=== PATIENT | male | born 1985 | race Caucasian/White ===

== ENCOUNTER 2018-04-20 20:53 | Emergency (ER) | payer OTHER ==
[~2018-04-20] VITALS: Ht 185.4 cm; Wt 72.6 kg
[~2018-04-20 20:53] MED LIST: ACETAMINOPHEN-1 EAC1 PO; BACTRIM DS TAB1 EACH PO; NOHOMEMEDICATIONS; ULTRAM 50MG TAB50 MG PO
[2018-04-20] MEDS ORDERED: PERCOCET PO (20:56)
[2018-04-20 21:32] LABS: ABSOLUTE BASOPHILS 0.1 thou/uL (0.0-0.2); ABSOLUTE EOSINOPHILS 0.2 thou/uL (0.0-0.7); ABSOLUTE LYMPHOCYTES 2.6 thou/uL (0.8-5.3); ABSOLUTE MONOCYTES 0.6 thou/uL (0.0-1.2); ABSOLUTE NEUTROPHILS 7.9 thou/uL (1.6-8.1); BASOPHILS 0.5 %; HEMATOCRIT 38.1 % (42.0-52.0); HEMOGLOBIN 12.7 gm/dL (14.0-18.0); LYMPHOCYTES 22.6 %; MCH 30.7 pg (26.0-34.0); MCHC 33.4 g/dL (28.0-37.0); MCV 91.9 fL (80.0-100.0); MONOCYTES 5.2 %; NUCLEATED RBCS 0 /100WBC; PLATELET COUNT* 351 thou/uL (150-400); POLYS 69.7 %; RBC 4.15 mil/uL (4.50-6.00); WBC 11.3 thou/uL (4.0-11.0)
[2018-04-20 21:44] LABS: URINE BILIRUBIN NEGATIVE (Negative); URINE BLOOD NEGATIVE (Negative); URINE CLARITY CLEAR; URINE COLOR YELLOW; URINE GLUCOSE-RANDOM NEGATIVE (Negative); URINE KETONES NEGATIVE (Negative); URINE LEUKOCYTES-REFLEX NEGATIVE (Negative); URINE NITRITE-REFLEX NEGATIVE (Negative); URINE PROTEIN NEGATIVE (Negative); URINE UROBILINOGEN 0.2 E.U./dl (0.2-1.0)
[2018-04-20 21:55] VITALS: BP 0008/00
[2018-04-20 21:59] LABS: AMP/METHAMP POSITIVE (Negative); BARBITURATES Negative (Negative); BENZODIAZEPINES Negative (Negative); COCAINE Negative (Negative); METHADONE Negative (Negative); OPIATES Negative (Negative); PCP Negative (Negative); THC Negative (Negative)
[2018-04-20 22:34] LABS: CALCIUM 8.5 mg/dL (8.5-10.1); CREATININE 0.8 mg/dL (0.6-1.3)
[2018-04-20 22:38] LABS: ALBUMIN 3.5 g/dL (3.4-5.0); TOTAL BILIRUBIN 0.5 mg/dL (<0.1-1.0); TOTAL PROTEIN 6.9 g/dL (6.4-8.2)
== END 2018-04-20 22:09 | disposition left against medical advice (07) ==
LOC: M.ERS 20:53
PROVIDERS: Emergency Medicine
DX: R10.31 Right lower quadrant pain (principal); R10.32 Left lower quadrant pain; R11.2 Nausea with vomiting, unspecified; F32.9 Major depressive disorder, single episode, unspecified

== ENCOUNTER 2018-06-26 14:57 | Emergency (ER) | payer OTHER ==
[~2018-06-26] VITALS: Ht 185.4 cm; Wt 74.8 kg
[~2018-06-26 14:57] MED LIST changes: +PERCOCET PO
[2018-06-26 15:37] LABS: ABSOLUTE BASOPHILS 0.1 thou/uL (0.0-0.2); ABSOLUTE EOSINOPHILS 0.2 thou/uL (0.0-0.7); ABSOLUTE LYMPHOCYTES 2.4 thou/uL (0.8-5.3); ABSOLUTE MONOCYTES 0.8 thou/uL (0.0-1.2); ABSOLUTE NEUTROPHILS 5.2 thou/uL (1.6-8.1); BASOPHILS 1.1 %; EOSINOPHILS 2.8 %; HEMATOCRIT 42.6 % (42.0-52.0); HEMOGLOBIN 14.5 gm/dL (14.0-18.0); MCH 31.8 pg (26.0-34.0); MCHC 34.1 g/dL (28.0-37.0); MCV 93.2 fL (80.0-100.0); MONOCYTES 9.2 %; MPV 7.4 fl. (7.2-11.1); NUCLEATED RBCS 0 /100WBC; PLATELET COUNT* 355 thou/uL (150-400); POLYS 59.9 %; RBC 4.57 mil/uL (4.50-6.00); RDW-CV 13.4 % (10.5-14.5); WBC 8.7 thou/uL (4.0-11.0)
[2018-06-26 16:07] LABS: CALCIUM 9.3 mg/dL (8.5-10.1)
[2018-06-26 16:11] LABS: ALBUMIN 3.7 g/dL (3.4-5.0); TOTAL BILIRUBIN 0.4 mg/dL (<0.1-1.0)
[2018-06-26] MEDS ORDERED: TESSALON PERLE100 MG PO (16:50)
[2018-06-26 17:02] VITALS: BP 132/90
== END 2018-06-26 17:07 | disposition home or self-care (01) ==
LOC: M.ERS 14:57
PROVIDERS: Emergency Medicine Emergency Medical Services
DX: R10.9 Unspecified abdominal pain (principal); F17.210 Nicotine dependence, cigarettes, uncomplicated; F32.9 Major depressive disorder, single episode, unspecified; F90.9 Attention-deficit hyperactivity disorder, unspecified type

== ENCOUNTER 2018-08-11 15:51 | Emergency (ER) | payer OTHER ==
[~2018-08-11] VITALS: Ht 185.4 cm; Wt 70.8 kg
[~2018-08-11 15:51] MED LIST changes: +TESSALON PERLE100 MG PO
[2018-08-11 15:56] VITALS: BP 135/75
== END 2018-08-11 16:20 | disposition left against medical advice (07) ==
LOC: M.ERS 15:51
DX: Z53.21 Procedure and treatment not carried out due to patient leaving prior to being seen by health care provider (principal)

== ENCOUNTER 2020-10-08 00:32 | Emergency (ER) | payer OTHER ==
[2020-10-08 01:40] VITALS: BP 00/00
== END 2020-10-08 01:03 | disposition left against medical advice (07) ==
LOC: M.ERS 00:32
DX: Z53.21 Procedure and treatment not carried out due to patient leaving prior to being seen by health care provider (principal)

== ENCOUNTER 2020-10-11 08:14 | Emergency (ER) | payer OTHER ==
[~2020-10-11] VITALS: Ht 185.4 cm; Wt 71.7 kg
[2020-10-11 08:24] VITALS: BP 141/85
== END 2020-10-11 08:44 | disposition home or self-care (01) ==
LOC: M.ERS 08:14
DX: K40.90 Unilateral inguinal hernia, without obstruction or gangrene, not specified as recurrent (principal); F17.210 Nicotine dependence, cigarettes, uncomplicated

== ENCOUNTER 2020-10-14 19:27 | Emergency (ER) | payer OTHER ==
[~2020-10-14] VITALS: Ht 172.7 cm; Wt 77.1 kg
[2020-10-14 19:49] VITALS: BP 138/68
== END 2020-10-14 19:49 ==
LOC: M.ERS 19:27
DX: K40.90 Unilateral inguinal hernia, without obstruction or gangrene, not specified as recurrent (principal); F17.210 Nicotine dependence, cigarettes, uncomplicated

== ENCOUNTER 2020-12-05 06:49 | Emergency (ER) | payer OTHER ==
[~2020-12-05] VITALS: Ht 185.4 cm; Wt 70.3 kg
[2020-12-05 08:18] VITALS: BP 130/75
== END 2020-12-05 08:19 | disposition home or self-care (01) ==
LOC: M.ERS 06:49
DX: S60.221A Contusion of right hand, initial encounter (principal); F17.210 Nicotine dependence, cigarettes, uncomplicated; Z98.890 Other specified postprocedural states; W22.8XXA Striking against or struck by other objects, initial encounter; Y93.89 Activity, other specified; Y92.89 Other specified places as the place of occurrence of the external cause; Y99.8 Other external cause status

== ENCOUNTER 2021-04-30 23:12 | Emergency (ER) | payer OTHER ==
[~2021-04-30] VITALS: Ht 185.4 cm; Wt 72.6 kg
[2021-04-30 23:33] LABS: ABSOLUTE BASOPHILS 0.1 thou/uL (0.0-0.2); ABSOLUTE EOSINOPHILS 0.5 thou/uL (0.0-0.7); ABSOLUTE LYMPHOCYTES 3.4 thou/uL (0.8-5.3); ABSOLUTE MONOCYTES 0.6 thou/uL (0.0-1.2); EOSINOPHILS 7.1 %; HEMATOCRIT 35.3 % (42.0-52.0); HEMOGLOBIN 11.6 gm/dL (14.0-18.0); MCH 31.4 pg (26.0-34.0); MCHC 32.9 g/dL (28.0-37.0); MCV 95.4 fL (80.0-100.0); MONOCYTES 8.7 %; MPV 6.6 fl. (7.2-11.1); NUCLEATED RBCS 0 /100WBC; PLATELET COUNT* 328 thou/uL (150-400); POLYS 31.2 %; RDW-CV 13.6 % (10.5-14.5); WBC 6.5 thou/uL (4.0-11.0)
[2021-04-30 23:57] LABS: CALCIUM 7.8 mg/dL (8.5-10.1); POTASSIUM 3.4 mmol/L (3.5-5.1)
[2021-05-01 00:05] LABS: ALBUMIN 3.3 g/dL (3.4-5.0); TOTAL BILIRUBIN 0.2 mg/dL (<0.1-1.0); TOTAL PROTEIN 6.4 g/dL (6.4-8.2)
[2021-05-01 05:10] VITALS: BP 102/61
== END 2021-05-01 05:10 | disposition home or self-care (01) ==
LOC: M.ERS 23:12
PROVIDERS: Emergency Medicine
DX: F10.129 Alcohol abuse with intoxication, unspecified (principal); Z20.822 Contact with and (suspected) exposure to COVID-19; F32.9 Major depressive disorder, single episode, unspecified; F90.9 Attention-deficit hyperactivity disorder, unspecified type; F17.210 Nicotine dependence, cigarettes, uncomplicated